=== PATIENT | female | born 1940 | race Two or more races ===

== ENCOUNTER 2021-11-25 07:35 | Inpatient (IN) | payer MEDICARE, MEDICAID ==
[~2021-11-25] VITALS: Ht 165.1 cm; Wt 77.4 kg
[~2021-11-25 07:35] MED LIST: ALPR0.5T7 PO; AMIO200T OR; ATOR20TA50 PO; BENA20TA14 PO; CILO100T PO; CLON0.2T PO; CLOP75TA70 PO; METF-371 PO; METO-158 PO; NITR0.4S29 SL; PANT1INJ3 PO; RIVA20TA PO
[2021-11-25 10:50] LABS: Potassium 4.3 mmol/L (3.5-5.1)
[2021-11-25 11:02] LABS: Bilirubin, Total 0.5 mg/dL (0.2-1.0); Calcium 8.1 mg/dL (8.5-10.1); Total Protein 5.9 g/dL (6.4-8.2)
[2021-11-25 11:33] LABS: Basophils # (auto) 0 10 ^3/uL (0-0.2); Eosinophils # (auto) 0 10 ^3/uL (0-0.8)
[2021-11-25 12:19] LABS: Urine Bacteria FEW /hpf (None Seen); Urine Blood Negative /uL (Negative); Urine Specific Gravity 1.019 (1.001-1.035); Urine WBC 66 /hpf (0 - 5)
[2021-11-25 12:37] LABS: Basophils % (auto) 0.4 % (0.0-2.0); Eosinophils % (auto) 0.3 % (0.0-7.0); Hemoglobin 8.6 g/dL (12.2-16.2); Lymphocytes # (auto) 1.4 10 ^3/uL (0.4-5.4); Lymphocytes % (auto) 20.7 % (10.0-50.0); Mean Corpuscular Hemoglobin 32.6 pg (28.0-32.0); Mean Corpuscular Hgb Conc. 34.5 g/dL (32.0-36.0); Mean Corpuscular Volume 94.5 fL (80.0-100.0); Monocytes # (auto) 0.5 10 ^3/uL (0-1.3); Monocytes % (auto) 6.8 % (0.0-12.0); Neutrophils # (auto) 4.8 10 ^3/uL (1.6-8.6); Neutrophils % (auto) 71.8 % (37.0-80.0); Nucleated Red Blood Cells % 0.3 %; Red Blood Cells 2.65 10^6/uL (4.0-5.20); Red Cell Distribution Width 18.3 % (11.8-14.3); White Blood Cell 6.7 10^3/uL (4.4-10.8)
[2021-11-25] MEDS ORDERED: FUROSEMIDE 40 MG/4 ML VIAL IV ONE (13:15)
[2021-11-25] MEDS ORDERED: SODIUM CHLORIDE 0.9% 250 ML IV ONE (13:15)
[2021-11-25] MEDS ORDERED: NITROGLYCERIN 0.4 MG SL TAB SL PRN (13:15)
[2021-11-25] MEDS ORDERED: MORPHINE SULFATE INJECTION 2 MG/ML SYRG IV PRN ×2 (13:15→14:15)
[2021-11-25] MEDS ORDERED: cefTRIAXone 1GM/50ML D5W 50 ML IV ONE (14:15)
[2021-11-25] MEDS ORDERED: DEXTROSE (50%) 50ML SYRG IV PRN (14:15)
[2021-11-25] MEDS ORDERED: HYDROcodone-ACET 5/325MG TAB PO PRN ×2 (14:15)
[2021-11-25] MEDS ORDERED: DOCUSATE SOD 100 MG CAP PO PRN (14:15)
[2021-11-25] MEDS ORDERED: FAMOTIDINE (10MG/ML) 2ML VL IV ONE (14:15)
[2021-11-25] MEDS ORDERED: IPRATROPIUM BROM 0.5 MG/2.5ML INH SOL NEB ONE (14:15)
[2021-11-25] MEDS ORDERED: LORazepam 0.5 MG TAB PO PRN (14:15)
[2021-11-25] MEDS ORDERED: ISOSORBIDE MONONITRATE 20 MG TAB PO ONE (14:15)
[2021-11-25] MEDS ORDERED: hydrALAZINE HCL 20 MG/ML VL IV PRN (14:15)
[2021-11-25] MEDS ORDERED: AMIODARONE HCL 200 MG TAB PO ONE (14:15)
[2021-11-25] MEDS ORDERED: LACTULOSE 20Gm/30ML SOLN PO PRN (14:15)
[2021-11-25] MEDS ORDERED: HYDROcodone-ACET 5/325MG TAB PO ONE (14:15)
[2021-11-25] MEDS ORDERED: DOXYCYCLINE 100MG/250ML 250 ML IV ONE (14:30)
[2021-11-25 14:52] VITALS: BP 127/39
[2021-11-25] MEDS: DOXYCYCLINE 100MG/250ML 250 ML IV SCH (15:29)
[2021-11-25 16:13] LABS: Phosphorus 4.1 mg/dL (2.5-4.90)
[2021-11-25 16:25] LABS: INR 1.27 (0.9-1.15); Partial Thromboplastin Time 33.2 sec (23.6-33.0)
[2021-11-25] MEDS ORDERED: InsuLIN REG 1unit/0.01ml Soln (100units/ml) SC SCH ×2 (17:00→22:00)
[2021-11-25] MEDS: FUROSEMIDE 20 MG/2 ML VIAL IV SCH (17:25)
[2021-11-25] MEDS: ACCU-CHEK COMFORT CURVE STRIP VI SCH ×2 (17:42→21:48)
[2021-11-25] MEDS: IPRATROPIUM BROM 0.5 MG/2.5ML INH SOL NEB SCH ×2 (19:03→22:07)
[2021-11-25] MEDS: CARVEDILOL 3.125 MG TAB PO SCH (21:58)
[2021-11-25] MEDS: APIXABAN 5 MG TAB PO SCH (21:59)
[2021-11-25] MEDS: ISOSORBIDE MONONITRATE 20 MG TAB PO SCH (21:59)
[2021-11-25] MEDS ORDERED: POTASSIUM CHL 20 Meq TABLET PO SCH (22:00)
[2021-11-25] MEDS: PENTOXIFYLLINE 400 MG ER TAB PO SCH (22:01)
[2021-11-25] MEDS: ATORVASTATIN 20 MG TAB PO SCH (22:01)
[2021-11-25] MEDS: BRIMONIDINE 0.2% OPTH Soln 5ml EACHEYE SCH (22:01)
[2021-11-26] MEDS: IPRATROPIUM BROM 0.5 MG/2.5ML INH SOL NEB SCH ×6 (02:08→22:23)
[2021-11-26] MEDS: DOXYCYCLINE 100MG/250ML 250 ML IV SCH (02:14)
[2021-11-26 05:57] VITALS: BP 117/46
[2021-11-26 06:31] VITALS: BP 124/45
[2021-11-26] MEDS: PENTOXIFYLLINE 400 MG ER TAB PO SCH ×3 (06:32→22:00)
[2021-11-26] MEDS: FUROSEMIDE 20 MG/2 ML VIAL IV SCH (06:33)
[2021-11-26] MEDS: ACCU-CHEK COMFORT CURVE STRIP VI SCH ×4 (07:00→22:10)
[2021-11-26 07:23] LABS: INR 1.32 (0.9-1.15); Partial Thromboplastin Time 34.5 sec (23.6-33.0)
[2021-11-26 07:32] LABS: Albumin 1.9 g/dL (3.4-5.0); Magnesium 2.3 mg/dL (1.6-2.6); Potassium 3.9 mmol/L (3.5-5.1)
[2021-11-26 07:41] LABS: BUN/Creatinine Ratio 23.6; Bilirubin, Total 0.5 mg/dL (0.2-1.0)
[2021-11-26 07:54] LABS: Thyroid Stimulating Hormone 0.27 uIU/mL (0.358-3.74)
[2021-11-26 08:31] LABS: Basophils # (auto) 0.2 10 ^3/uL (0-0.2); Basophils % (auto) 1.6 % (0.0-2.0); Eosinophils # (auto) 0 10 ^3/uL (0-0.8); Eosinophils % (auto) 0.1 % (0.0-7.0); Hematocrit 26.3 % (36.0-46.0); Hemoglobin 8.4 g/dL (12.2-16.2); Lymphocytes # (auto) 3.2 10 ^3/uL (0.4-5.4); Lymphocytes % (auto) 30.2 % (10.0-50.0); Mean Corpuscular Hemoglobin 28.1 pg (28.0-32.0); Mean Corpuscular Hgb Conc. 32.1 g/dL (32.0-36.0); Mean Corpuscular Volume 87.5 fL (80.0-100.0); Monocytes # (auto) 0.9 10 ^3/uL (0-1.3); Monocytes % (auto) 8.8 % (0.0-12.0); Neutrophils # (auto) 6.2 10 ^3/uL (1.6-8.6); Neutrophils % (auto) 59.3 % (37.0-80.0); Nucleated Red Blood Cells % 0.7 %; Red Cell Distribution Width 17.8 % (11.8-14.3); White Blood Cell 10.5 10^3/uL (4.4-10.8)
[2021-11-26 09:00] VITALS: BP 140/41
[2021-11-26] MEDS: cefTRIAXone 1GM/50ML D5W 50 ML IV SCH (09:00)
[2021-11-26] MEDS: AMIODARONE HCL 200 MG TAB PO SCH (10:00)
[2021-11-26] MEDS ORDERED: ASPirin 81 mg TAB PO SCH (10:00)
[2021-11-26] MEDS ORDERED: FAMOTIDINE (10MG/ML) 2ML VL IV SCH (10:00)
[2021-11-26] MEDS: CARVEDILOL 3.125 MG TAB PO SCH ×2 (10:00→22:13)
[2021-11-26] MEDS: ISOSORBIDE MONONITRATE 20 MG TAB PO SCH ×2 (10:00→22:00)
[2021-11-26] MEDS: BENAZEPRIL HCL 10 MG TAB PO SCH (10:00)
[2021-11-26] MEDS: BRIMONIDINE 0.2% OPTH Soln 5ml EACHEYE SCH ×2 (10:00→22:00)
[2021-11-26] MEDS: APIXABAN 5 MG TAB PO SCH ×2 (10:00→22:13)
[2021-11-26 11:09] LABS: Alcohol, Urine < 3.0 mg/dL (0-10); Amphetamine Screen, Urine NEGATIVE (NEGATIVE); Barbiturate Scree,Urine NEGATIVE (NEGATIVE); Benzodiazephine Screen, Urine NEGATIVE (NEGATIVE); Cannabinoid Screen, Urine NEGATIVE (NEGATIVE); Cocaine Screen, Urine NEGATIVE (NEGATIVE); Opiate Scree,Urine NEGATIVE (NEGATIVE); Phencyclidine Screen, Urine NEGATIVE (NEGATIVE)
[2021-11-26] MEDS ORDERED: DEXTROSE (50%) 50ML SYRG IV PRN (12:45)
[2021-11-26 13:00] VITALS: BP 141/49
[2021-11-26 17:00] VITALS: BP 146/86
[2021-11-26] MEDS: InsuLIN REG 1unit/0.01ml Soln (100units/ml) SC SCH ×2 (17:00→22:10)
[2021-11-26 20:00] VITALS: BP 139/49
[2021-11-26] MEDS: cloNIDine HCL 0.1 MG TAB PO SCH (22:12)
[2021-11-26] MEDS: ATORVASTATIN 20 MG TAB PO SCH (22:14)
[2021-11-27] MEDS: IPRATROPIUM BROM 0.5 MG/2.5ML INH SOL NEB SCH ×5 (03:07→18:13)
[2021-11-27] MEDS: PENTOXIFYLLINE 400 MG ER TAB PO SCH ×3 (06:00→23:06)
[2021-11-27 06:39] LABS: BUN/Creatinine Ratio 22.4; Calcium 7.9 mg/dL (8.5-10.1); Potassium 4.2 mmol/L (3.5-5.1)
[2021-11-27] MEDS: InsuLIN REG 1unit/0.01ml Soln (100units/ml) SC SCH ×4 (07:00→22:00)
[2021-11-27] MEDS: ACCU-CHEK COMFORT CURVE STRIP VI SCH ×4 (07:08→22:00)
[2021-11-27 09:00] VITALS: BP 144/63
[2021-11-27] MEDS: cefTRIAXone 1GM/50ML D5W 50 ML IV SCH ×2 (09:00→11:45)
[2021-11-27 09:46] LABS: Hematocrit 25.4 % (36.0-46.0); Hemoglobin 9.6 g/dL (12.2-16.2); Mean Corpuscular Hemoglobin 38.8 pg (28.0-32.0); Mean Corpuscular Volume 102.2 fL (80.0-100.0); Red Blood Cells 2.48 10^6/uL (4.0-5.20); Red Cell Distribution Width 18.9 % (11.8-14.3); White Blood Cell 6.8 10^3/uL (4.4-10.8)
[2021-11-27 09:47] LABS: Mean Corpuscular Hgb Conc. 37.9 g/dL (32.0-36.0)
[2021-11-27 09:49] LABS: Band Neutrophils % (manual) 0; Basophils % (manual) 0 (0.0-2.0); Blast Cells 0; Metamyelocytes % 0; Myelocytes % 0; Promyelocytes % 0; Reactive Lymphocytes 0
[2021-11-27] MEDS: APIXABAN 5 MG TAB PO SCH ×2 (10:00→23:05)
[2021-11-27] MEDS: cloNIDine HCL 0.1 MG TAB PO SCH ×2 (10:00→22:00)
[2021-11-27] MEDS: BRIMONIDINE 0.2% OPTH Soln 5ml EACHEYE SCH ×2 (10:00→22:00)
[2021-11-27] MEDS: CARVEDILOL 3.125 MG TAB PO SCH ×2 (10:00→23:05)
[2021-11-27] MEDS: AMIODARONE HCL 200 MG TAB PO SCH (10:00)
[2021-11-27] MEDS: ISOSORBIDE MONONITRATE 20 MG TAB PO SCH ×2 (10:00→23:05)
[2021-11-27] MEDS: BENAZEPRIL HCL 10 MG TAB PO SCH (10:00)
[2021-11-27 10:13] LABS: Eosinophils % (manual) 2 (0-7); Lymphocytes % (manual) 31 (10.0-50.0); Monocytes % (manual) 7 (0-12)
[2021-11-27] MEDS ORDERED: BENA40TA83 PO (11:10)
[2021-11-27] MEDS ORDERED: ISOS1TAB28 PO (11:11)
[2021-11-27] MEDS ORDERED: APIX5TAB PO (11:11)
[2021-11-27] MEDS ORDERED: BUME1TAB3 PO (11:14)
[2021-11-27] MEDS ORDERED: AMLO-489 PO (11:14)
[2021-11-27] MEDS ORDERED: CARV12.544 PO (11:14)
[2021-11-27] MEDS ORDERED: SOLI5TAB7 PO (11:14)
[2021-11-27 21:30] VITALS: BP 116/54
[2021-11-27] MEDS: ATORVASTATIN 20 MG TAB PO SCH (22:00)
[2021-11-27] MEDS: IPRATROPIUM BROM 0.5 MG/2.5ML INH SOL NEB PRN (22:29)
[2021-11-28] MEDS: PENTOXIFYLLINE 400 MG ER TAB PO SCH ×3 (05:56→22:23)
[2021-11-28] MEDS: InsuLIN REG 1unit/0.01ml Soln (100units/ml) SC SCH ×4 (06:03→22:00)
[2021-11-28] MEDS: ACCU-CHEK COMFORT CURVE STRIP VI SCH ×4 (06:03→22:23)
[2021-11-28] MEDS: BUMETANIDE 1 MG TAB PO SCH (09:22)
[2021-11-28] MEDS: cloNIDine HCL 0.1 MG TAB PO SCH ×2 (09:23→22:27)
[2021-11-28] MEDS: AMIODARONE HCL 200 MG TAB PO SCH (09:23)
[2021-11-28] MEDS: ISOSORBIDE MONONITRATE 20 MG TAB PO SCH ×2 (09:23→22:27)
[2021-11-28] MEDS: APIXABAN 5 MG TAB PO SCH ×2 (09:23→22:23)
[2021-11-28] MEDS: CARVEDILOL 3.125 MG TAB PO SCH ×2 (09:23→22:27)
[2021-11-28] MEDS: BENAZEPRIL HCL 10 MG TAB PO SCH (09:24)
[2021-11-28 09:26] VITALS: BP 129/50
[2021-11-28 09:52] VITALS: BP 138/61
[2021-11-28] MEDS: BRIMONIDINE 0.2% OPTH Soln 5ml EACHEYE SCH ×2 (10:00→22:23)
[2021-11-28] MEDS ORDERED: cefTRIAXone 1GM/50ML D5W 50 ML IV SCH (10:36)
[2021-11-28 10:45] LABS: Hematocrit 19.1 % (36.0-46.0); Mean Corpuscular Hemoglobin 42.5 pg (28.0-32.0); Mean Corpuscular Volume 101.6 fL (80.0-100.0); Red Blood Cells 1.88 10^6/uL (4.0-5.20); Red Cell Distribution Width 18.5 % (11.8-14.3)
[2021-11-28 11:28] LABS: Basophils % (manual) 0 (0.0-2.0); Blast Cells 0; Eosinophils % (manual) 0 (0-7); Mean Corpuscular Hgb Conc. 41.8 g/dL (32.0-36.0); Metamyelocytes % 0; Myelocytes % 0; Promyelocytes % 0; Reactive Lymphocytes 0
[2021-11-28 12:20] LABS: Band Neutrophils % (manual) 1; Lymphocytes % (manual) 52 (10.0-50.0); Monocytes % (manual) 13 (0-12)
[2021-11-28 12:48] VITALS: BP 107/44
[2021-11-28] MEDS ORDERED: ERTAPENEM SOD INJ 1 GM in SODIUM CHL 0.9% 50 ML IV ONE (15:00)
[2021-11-28 16:48] VITALS: BP 135/56
[2021-11-28] MEDS: IPRATROPIUM BROM 0.5 MG/2.5ML INH SOL NEB PRN (18:40)
[2021-11-28 22:00] VITALS: BP 145/52
[2021-11-28] MEDS: ATORVASTATIN 20 MG TAB PO SCH (22:23)
[2021-11-29 05:00] VITALS: BP 134/47
[2021-11-29] MEDS: PENTOXIFYLLINE 400 MG ER TAB PO SCH ×3 (05:58→21:05)
[2021-11-29] MEDS: InsuLIN REG 1unit/0.01ml Soln (100units/ml) SC SCH ×4 (06:26→21:34)
[2021-11-29] MEDS: ACCU-CHEK COMFORT CURVE STRIP VI SCH ×4 (06:26→21:05)
[2021-11-29 08:00] VITALS: BP 137/45
[2021-11-29 09:00] VITALS: BP 137/45
[2021-11-29] MEDS: BRIMONIDINE 0.2% OPTH Soln 5ml EACHEYE SCH ×2 (09:06→21:16)
[2021-11-29] MEDS: cloNIDine HCL 0.1 MG TAB PO SCH ×2 (09:07→10:07)
[2021-11-29] MEDS: BUMETANIDE 1 MG TAB PO SCH (09:07)
[2021-11-29] MEDS: AMIODARONE HCL 200 MG TAB PO SCH (09:07)
[2021-11-29] MEDS: APIXABAN 5 MG TAB PO SCH ×2 (09:07→21:05)
[2021-11-29] MEDS: ISOSORBIDE MONONITRATE 20 MG TAB PO SCH ×2 (09:08→21:05)
[2021-11-29] MEDS: ERTAPENEM SOD INJ 1 GM in SODIUM CHL 0.9% 50 ML IV SCH (09:11)
[2021-11-29] MEDS: CARVEDILOL 3.125 MG TAB PO SCH ×2 (10:00→21:04)
[2021-11-29] MEDS: BENAZEPRIL HCL 10 MG TAB PO SCH (10:00)
[2021-11-29 13:00] VITALS: BP 144/53
[2021-11-29 16:30] VITALS: BP 141/47
[2021-11-29 22:00] VITALS: BP 135/75
[2021-11-30 05:00] VITALS: BP 133/51
[2021-11-30] MEDS: ACCU-CHEK COMFORT CURVE STRIP VI SCH ×4 (06:26→22:26)
[2021-11-30] MEDS: PENTOXIFYLLINE 400 MG ER TAB PO SCH ×3 (06:26→22:23)
[2021-11-30] MEDS: InsuLIN REG 1unit/0.01ml Soln (100units/ml) SC SCH ×4 (06:26→22:32)
[2021-11-30 06:40] LABS: BUN/Creatinine Ratio 17.8; Calcium 8.9 mg/dL (8.5-10.1); Magnesium 2.3 mg/dL (1.6-2.6); Potassium 3.9 mmol/L (3.5-5.1)
[2021-11-30 09:00] VITALS: BP 145/45
[2021-11-30] MEDS: ERTAPENEM SOD INJ 1 GM in SODIUM CHL 0.9% 50 ML IV SCH (09:09)
[2021-11-30] MEDS: BRIMONIDINE 0.2% OPTH Soln 5ml EACHEYE SCH ×2 (09:09→22:31)
[2021-11-30] MEDS: ISOSORBIDE MONONITRATE 20 MG TAB PO SCH ×2 (09:10→22:23)
[2021-11-30] MEDS: BENAZEPRIL HCL 10 MG TAB PO SCH (09:11)
[2021-11-30] MEDS: AMIODARONE HCL 200 MG TAB PO SCH (09:12)
[2021-11-30] MEDS: CARVEDILOL 3.125 MG TAB PO SCH ×2 (09:13→22:21)
[2021-11-30] MEDS: BUMETANIDE 1 MG TAB PO SCH (09:13)
[2021-11-30] MEDS: APIXABAN 5 MG TAB PO SCH ×2 (09:14→22:22)
[2021-11-30] MEDS ORDERED: CHOL20007 PO (11:26)
[2021-11-30 13:00] VITALS: BP 131/60
[2021-11-30 15:27] LABS: Hematocrit 23.8 % (36.0-46.0); Hemoglobin 8.5 g/dL (12.2-16.2); Mean Corpuscular Hemoglobin 33.5 pg (28.0-32.0); Mean Corpuscular Hgb Conc. 35.9 g/dL (32.0-36.0); Mean Corpuscular Volume 93.2 fL (80.0-100.0); Red Blood Cells 2.55 10^6/uL (4.0-5.20); White Blood Cell 5.9 10^3/uL (4.4-10.8)
[2021-11-30 15:29] LABS: Basophils % (manual) 0 (0.0-2.0); Blast Cells 0; Metamyelocytes % 0; Myelocytes % 0; Promyelocytes % 0; Reactive Lymphocytes 0
[2021-11-30 16:06] LABS: Band Neutrophils % (manual) 2; Eosinophils % (manual) 1 (0-7); Lymphocytes % (manual) 51 (10.0-50.0); Monocytes % (manual) 4 (0-12)
[2021-11-30 17:00] VITALS: BP 97/49
[2021-11-30 22:00] VITALS: BP 156/48
[2021-12-01 05:00] VITALS: BP 138/53
[2021-12-01] MEDS: InsuLIN REG 1unit/0.01ml Soln (100units/ml) SC SCH ×4 (07:00→22:00)
[2021-12-01] MEDS: PENTOXIFYLLINE 400 MG ER TAB PO SCH ×3 (07:09→22:37)
[2021-12-01] MEDS: ACCU-CHEK COMFORT CURVE STRIP VI SCH ×4 (07:09→22:34)
[2021-12-01 09:00] VITALS: BP 124/45
[2021-12-01] MEDS: BUMETANIDE 1 MG TAB PO SCH (09:13)
[2021-12-01] MEDS: CARVEDILOL 3.125 MG TAB PO SCH ×2 (09:14→23:05)
[2021-12-01] MEDS: APIXABAN 5 MG TAB PO SCH ×2 (09:15→22:38)
[2021-12-01] MEDS: AMIODARONE HCL 200 MG TAB PO SCH (09:16)
[2021-12-01] MEDS: ISOSORBIDE MONONITRATE 20 MG TAB PO SCH ×2 (09:17→23:05)
[2021-12-01] MEDS: BENAZEPRIL HCL 10 MG TAB PO SCH (09:18)
[2021-12-01] MEDS: ERTAPENEM SOD INJ 1 GM in SODIUM CHL 0.9% 50 ML IV SCH (09:33)
[2021-12-01] MEDS: BRIMONIDINE 0.2% OPTH Soln 5ml EACHEYE SCH ×2 (09:43→22:38)
[2021-12-01 13:00] VITALS: BP 135/41
[2021-12-01 15:57] VITALS: BP 124/54
[2021-12-01 17:00] VITALS: BP 136/44
[2021-12-01 22:00] VITALS: BP 113/43
[2021-12-02 05:00] VITALS: BP 132/57
[2021-12-02] MEDS: PENTOXIFYLLINE 400 MG ER TAB PO SCH ×3 (06:15→22:25)
[2021-12-02] MEDS: InsuLIN REG 1unit/0.01ml Soln (100units/ml) SC SCH ×4 (06:16→22:00)
[2021-12-02] MEDS: ACCU-CHEK COMFORT CURVE STRIP VI SCH ×4 (06:16→22:24)
[2021-12-02 09:00] VITALS: BP 144/48
[2021-12-02] MEDS: BRIMONIDINE 0.2% OPTH Soln 5ml EACHEYE SCH ×2 (09:45→22:20)
[2021-12-02] MEDS: ERTAPENEM SOD INJ 1 GM in SODIUM CHL 0.9% 50 ML IV SCH (09:45)
[2021-12-02] MEDS: CARVEDILOL 3.125 MG TAB PO SCH ×2 (09:46→22:00)
[2021-12-02] MEDS: AMIODARONE HCL 200 MG TAB PO SCH (09:46)
[2021-12-02] MEDS: BUMETANIDE 1 MG TAB PO SCH (09:46)
[2021-12-02] MEDS: APIXABAN 5 MG TAB PO SCH ×2 (09:47→22:22)
[2021-12-02] MEDS: BENAZEPRIL HCL 10 MG TAB PO SCH (09:47)
[2021-12-02] MEDS: ISOSORBIDE MONONITRATE 20 MG TAB PO SCH ×2 (09:47→22:00)
[2021-12-02 13:00] VITALS: BP 123/43
[2021-12-02 17:00] VITALS: BP 155/51
[2021-12-02 22:00] VITALS: BP 150/35
[2021-12-02] MEDS: ONDANSETRON HCL 4 MG/2 ML VIAL IV PRN (22:25)
[2021-12-03 05:00] VITALS: BP_SYST 114; BP_SYST 167; BP_DIAS 55; BP_DIAS 66
[2021-12-03] MEDS: PENTOXIFYLLINE 400 MG ER TAB PO SCH (05:42)
[2021-12-03] MEDS: ACCU-CHEK COMFORT CURVE STRIP VI SCH ×2 (05:43→16:17)
[2021-12-03] MEDS: InsuLIN REG 1unit/0.01ml Soln (100units/ml) SC SCH ×2 (05:43→16:16)
[2021-12-03 09:00] VITALS: BP 140/45
[2021-12-03] MEDS: ERTAPENEM SOD INJ 1 GM in SODIUM CHL 0.9% 50 ML IV SCH (09:14)
[2021-12-03] MEDS: BUMETANIDE 1 MG TAB PO SCH (09:15)
[2021-12-03] MEDS: AMIODARONE HCL 200 MG TAB PO SCH (09:15)
[2021-12-03] MEDS: APIXABAN 5 MG TAB PO SCH (09:16)
[2021-12-03] MEDS: CARVEDILOL 3.125 MG TAB PO SCH (09:16)
[2021-12-03] MEDS: ISOSORBIDE MONONITRATE 20 MG TAB PO SCH (09:17)
[2021-12-03] MEDS: BENAZEPRIL HCL 10 MG TAB PO SCH (09:18)
[2021-12-03] MEDS: ONDANSETRON HCL 4 MG/2 ML VIAL IV PRN (09:19)
[2021-12-03] MEDS: BRIMONIDINE 0.2% OPTH Soln 5ml EACHEYE SCH (10:00)
[2021-12-03] MEDS ORDERED: BENAZEPRIL HCL 10 MG TAB PO ONE (11:30)
[2021-12-03 12:26] VITALS: BP 167/55
[2021-12-03 12:49] VITALS: BP 124/46
== END 2021-12-03 18:09 | disposition home health service (06) | DRG 871 ==
LOC: EDBD 07:35 → ER 07:35 → TELE 13:09 → TELE-WESTW 11-26 03:40
PROVIDERS: ADMIT Hospitalist; ATTEND Internal Medicine
PROC: 05HC33Z Insertion of Infusion Device into Left Basilic Vein, Percutaneous Approach (ICD-10-PCS; principal; 2021-11-29)
PROC: B54NZZA Ultrasonography of Left Upper Extremity Veins, Guidance (ICD-10-PCS; 2021-11-29)
DX: A41.51 Sepsis due to Escherichia coli [E. coli] (principal); I50.43 Acute on chronic combined systolic (congestive) and diastolic (congestive) heart failure; N17.0 Acute kidney failure with tubular necrosis; E43 Unspecified severe protein-calorie malnutrition; J96.21 Acute and chronic respiratory failure with hypoxia; J44.1 Chronic obstructive pulmonary disease with (acute) exacerbation; N39.0 Urinary tract infection, site not specified; I48.19 Other persistent atrial fibrillation; D68.69 Other thrombophilia; I13.0 Hypertensive heart and chronic kidney disease with heart failure and stage 1 through stage 4 chronic kidney disease, or unspecified chronic kidney disease; I50.82 Biventricular heart failure; K59.04 Chronic idiopathic constipation; K76.0 Fatty (change of) liver, not elsewhere classified; D64.9 Anemia, unspecified; E11.22 Type 2 diabetes mellitus with diabetic chronic kidney disease; E55.9 Vitamin D deficiency, unspecified; E78.5 Hyperlipidemia, unspecified; H40.9 Unspecified glaucoma; I25.10 Atherosclerotic heart disease of native coronary artery without angina pectoris; M19.90 Unspecified osteoarthritis, unspecified site; I27.20 Pulmonary hypertension, unspecified; R79.89 Other specified abnormal findings of blood chemistry; Z20.822 Contact with and (suspected) exposure to COVID-19; N18.2 Chronic kidney disease, stage 2 (mild); N39.41 Urge incontinence; Z68.28 Body mass index [BMI] 28.0-28.9, adult; Z79.01 Long term (current) use of anticoagulants; Z79.02 Long term (current) use of antithrombotics/antiplatelets; Z79.899 Other long term (current) drug therapy; Z79.84 Long term (current) use of oral hypoglycemic drugs; Z95.0 Presence of cardiac pacemaker; Z86.16 Personal history of COVID-19; Z87.01 Personal history of pneumonia (recurrent)
CPT/HCPCS: 36415; 71045; 80048; 80053; 80061; 80307; 81001; 82270; 82306; 82728; 82962; 83036; 83615; 83735; 83880; 84100; 84443; 84484; 85007; 85025; 85027; 85379; 85610; 85652; 85730; 86141; 87040; 87077; 87081; 87086; 87186; 87426; 93005; 93306; 94640; 96365; 96366; 96368; 96375; 97110; 97163; G0378; J0696; J1335; J1815; J2405; J3490